=== PATIENT | female | born 1980 | race Two or more races ===

== ENCOUNTER 2018-02-16 12:06 | Emergency (ER) | payer MEDICAID ==
--- NOTE | 2018-02-16 12:42 | ED Physician Chart ---
ED Chief Complaint/HPI - Patient Information Date Seen:: 02/16/18 Time Seen:: 12:00 Chief Complaint:: Headaches History of Present Illness:: onset x 3 days of intermittent, dull, diffuse Headaches radiating to the neck; pt denies trauma, LOC, ALOC, AMS, N/V, decreased activity, visual or gait changes, neck pain, weakness, dizziness, paresthesias, vertigo, cough, C/P, SOB , Abd. Pain, A/N/V/D/c, fever, chills, or urinary s/s; LNMP: 02/13/18; pt denies ; pt is eating and is urinating well; pt last urinated one hour [employer]AM[employer]ER Allergies:: Allergies Allergy/AdvReac Type Severity Reaction Status Date / Time Penicillins [PCN] Allergy Verified 02/16/18 12:12 Vitals:: Vital Signs - 8 hr 02/16/18 12:12 Temp 97.7 F HR 82 RR 16 BP 158/80 O2 Sat % 97 Historian:: Patient, Family Member Review:: Nurse's Note Reviewed ED Review of Systems - Review of Systems General/Constitutional: No fever, No chills, No weight loss, No weakness, No diaphoresis, No edema, No loss of appetite Skin: No skin lesions, No rash, No bruising Head: No headache, No light-headedness Eyes: No loss of vision, No pain, No diplopia ENT: No earache, No nasal drainage, No sore throat, No tinnitus Neck: No neck pain, No swelling, No thyromegaly, No stiffness, No mass noted Cardio Vascular: No chest pain, No palpitations, No PND, No orthopnea, No edema Pulmonary: No SOB, No cough, No sputum, No wheezing GI: No nausea, No vomiting, No diarrhea, No pain, No melena, No hematochezia, No constipation, No hematemesis G/U: No dysuria, No frequency, No hematuria, No nacturia Circle Edger: No vaginal discharge, No abnormal vaginal bleed, No contraction Musculoskeletal: No bone or joint pain, No back pain, No muscle pain Endocrine: No polyuria, No polydipsia Psychiatric: No prior psych history, No depression, No anxiety, No suicidal ideation, No homicidal ideation, No auditory hallucination, No visual hallucination Hematopoietic: No bruising, No lymphadenopathy Allergic/Immuno: No urticaria, No angioedema Neurological: No syncope, No focal symptoms, No weakness, No paresthesia, Headache, No seizure, No dizziness, No confusion, No vertigo ED Past Medical History - Past Medical History Obtainable: Yes Past Medical History: No significant medical hx Family History: None Social History: Non Smoker, No Alcohol, No Drug Use, Surgical History: None Psychiatricy History: None Medication: Reviewed Family Medical History - Family Member Mother History Unknown: Yes Ethnicity: Hx Family Hypertension: Yes ED Physical Exam - Physical Examination General/Constitutional: Awake, Well-developed, well-nourished, Alert, No distress, GCS 15, Non-toxic appearing, Ambulatory Head: Atraumatic Eyes: Lids, conjuctiva normal, PERRL, EOMI Other Eyes comments:: PERRLA; Fundi: benign; EOMs: WNL; LLL: WNL Skin: Nl inspection, No rash, No skin lesions, No ecchymosis, Well hydrated, No lymphadenopathy ENMT: External ears, nose nl, TM canals nl, Nasal exam nl, Lips, teeth, gums nl , Oropharynx nl, Tonsils nl Other ENMT comments:: TMJs: WNL; Neck: Nontender, Full ROM w/o pain, No JVD, No nuchal rigidity, No bruit, No mass, No stridor Other Neck comments:: supple; no meningeal signs; no cervical tenderness; no bruits Respiratory: Nl effort/Exclusion, Clear to Auscultation, No Wheeze/Rhonchi/Rales Cardio Vascular: RRR, No murmur, gallop, rubs, NL S1 S2, Carotid/Femoral/Distal pulses equal bilaterally GI: No tenderness/rebounding/guarding, No organomegaly, No hernia, Normal BS's, Nondistended, No mass/bruits, No McBurney tenderness, Rectum exam nl Other GI comments:: no pulsatile masses; good BS : No CVA tenderness Extremities: No tenderness or effusion, Full ROM, normal strength in all extremities, No edema, Normal digits & nails Neuro/Psych: Alert/oriented, DTR's symmetric, Normal sensory exam, Normal motor strength, Judgement/insight normal, Mood normal, Normal gait, No focal deficits Other Neuro/Psych comments:: no focal signs Misc: Normal back, No paraspinal tenderness ED Labs/Radiology/EKG Results - Lab Results Results: Laboratory Tests 02/16/18 12:20 Urine Test NEGATIVE Comments:: UCG: Negative - Radiology Results Comments:: NAD ED Septic Shock - . Is Septic Shock (SBP<90, OR Lactate>4 mmol\L) present?: No - <6hrs of presentation: Vital Signs: Vital Signs - 8 hr 02/16/18 12:12 Temp 97.7 F HR 82 RR 16 BP 158/80 O2 Sat % 97 ED Reassessment (Disposition) - Reassessment Reassessment:: pt tolerated po fluids well in ER; pt is asymptomatic upon discharge Reassessment Condition:: Improved - Diagnosis Diagnosis:: Headaches; Vascular Cephalgia; Tension Headaches - Aftercare/Follow up Instructions Aftercare/Follow-Up Instructions:: Counseled pt regarding lab results/diagnosis & need follow up, Refer to Discharge Instructions, Counseled pt & family regarding lab results/diagnosis & need follow up - Patient Disposition Discharge/Transfer:: Home Condition at Disposition:: Stable, Improved (RTER prn if existing s/s reoccur and/or get worse and/or any other new s/s occur; X-Rays Instructions; ACIs given for all above Dx; Refer to Neurologist/Carburetor Repairer [facility]; F/U with PMD in one day or prn; RTER prn if concerned) ED Discharge Plan - Patient Disposition Admit/Discharge/Transfer: PT DISCHARGED HOME Condition at Disposition: Stable Instructions: Tension Headache, [id number] Additional Instructions: PLS FOLLOW UP WITH NEUROLOGIST IN 1-2 DAYS. RETURN TO ER IF SYMPTOMS WORSEN.
--- NOTE | 2018-02-16 14:03 | Diagnostic Imaging Report ---
CT scan of the brain without contrast History: Headache Total DLP equals 605 CTDI equals 35.5 Axial sections were obtained from the base of the skull to the vertex. There is a normal ventricular system size. No focal parenchymal lesions are seen. No evidence of any mass effect or shift of midline structures. No extra-axial masses or abnormal fluid collections. Impression: Negative examination
--- NOTE | 2018-02-16 14:04 | Diagnostic Imaging Report ---
CT scan cervical spine History: Pain Total DLP equals 459 CTDI equals 28.2 Axial sections were obtained through the cervical spine region. Additional sagittal and coronal reformatted images are provided. No focal bony lesions are seen. Specifically, no fractures are identified. There is limited visualization of the margins of the cervical spinal cord. No obvious extradural soft tissue abnormalities are seen. The prevertebral soft tissues appear normal. Impression: No acute abnormalities
== END 2018-02-16 15:05 | disposition home or self-care (01) ==
LOC: ER 12:06
DX: G44.1 Vascular headache, not elsewhere classified (principal); G44.209 Tension-type headache, unspecified, not intractable; Z88.0 Allergy status to penicillin
CPT/HCPCS: 70450-TC; 72125-TC; 81025-TC

== ENCOUNTER 2019-04-22 10:31 | Emergency (ER) | payer MEDICAID ==
[2019-04-22 10:59] LABS: % EOSINOPHILS 1.1 % (0.0-5.0); % LYMPHOCYTES 25.9 % (20.0-50.0); % MONOCYTES 3.4 % (2.0-10.0); % NEUTROPHILS 69.6 % (40.0-80.0); EOSINOPHILE ABSOLUTE 0.1 Th/cmm (0.1-0.4); HEMATOCRIT 39.8 % (41.0-60); HEMOGLOBIN 13.4 gm/dL (12-16); LYMPHOCYTE ABSOLUTE 2.3 Th/cmm (1.5-3.0); MEAN CELL VOLUME 84.3 fl (81-100); MEAN CORPUSCULAR HEMOGLOBIN 28.5 pg (27.0-31.0); MEAN CORPUSCULAR HGB CONC 33.8 pg (28.0-36.0); MONOCYTE ABSOLUTE 0.3 Th/cmm (0.3-1.0); PLATELET COUNT 303 Th/cmm (150-400); RED BLOOD COUNT 4.72 Mil/cmm (3.80-5.10); RED CELL DISTRIBUTION WIDTH 12.2 % (11.5-20.0); WHITE BLOOD COUNT 8.7 Th/cmm (4.8-10.8)
[2019-04-22 11:11] LABS: INR 0.95 (0.5-1.4)
--- NOTE | 2019-04-22 11:11 | ED Physician Chart ---
ED Chief Complaint/HPI - Patient Information Date Seen:: 04/22/19 Time Seen:: 10:38 Chief Complaint:: heart palpations History of Present Illness:: this is a 38 yo female with heart palpations that started yesterday at home and has continued today without pain, nausea, vomiting and fever. she denies any previous heart problems, diabetes, thyroid and hypertension problems in the past. she denies dizziness, weakness and abdominal pain. Allergies:: Allergies Allergy/AdvReac Type Severity Reaction Status Date / Time Penicillins [PCN] Allergy Verified 02/16/18 12:12 Vitals:: Vital Signs - 8 hr 04/22/19 10:40 Temp 97.6 F HR 74 RR 16 BP 140/69 O2 Sat % 99 Historian:: Patient Review:: Nurse's Note Reviewed, Old Chart Reviewed ED Review of Systems - Review of Systems General/Constitutional: No fever, No chills, No weight loss, No weakness, No diaphoresis, No edema, No loss of appetite Skin: No skin lesions, No rash, No bruising Head: No headache, No light-headedness Eyes: No loss of vision, No pain, No diplopia ENT: No earache, No nasal drainage, No sore throat, No tinnitus Neck: No neck pain, No swelling, No thyromegaly, No stiffness, No mass noted Cardio Vascular: No chest pain, Palpitations, No PND, No orthopnea, No edema Pulmonary: No SOB, No cough, No sputum, No wheezing GI: No nausea, No vomiting, No diarrhea, No pain, No melena, No hematochezia, No constipation, No hematemesis G/U: No dysuria, No frequency, No hematuria Musculoskeletal: No bone or joint pain, No back pain, No muscle pain Endocrine: No polyuria, No polydipsia Psychiatric: No prior psych history, No depression, No anxiety, No suicidal ideation Hematopoietic: No bruising, No lymphadenopathy Allergic/Immuno: No urticaria, No angioedema Neurological: No syncope, No focal symptoms, No weakness, No paresthesia, No headache, No seizure, No dizziness, No confusion, No vertigo ED Past Medical History - Past Medical History Obtainable: Yes Past Medical History: No significant medical hx Family History: None Social History: Non Smoker, No Alcohol, No Drug Use, Surgical History: (two c-sections) Psychiatricy History: None Medication: Reviewed Family Medical History - Family Member Mother History Unknown: Yes Ethnicity: Hx Family Hypertension: Yes ED Physical Exam - Physical Examination General/Constitutional: Awake, Well-developed, well-nourished, Alert, No distress, GCS 15, Non-toxic appearing, Ambulatory Head: Atraumatic Eyes: Lids, conjuctiva normal, PERRL, EOMI Skin: Nl inspection, No rash, No skin lesions, No ecchymosis, Well hydrated, No lymphadenopathy ENMT: External ears, nose nl, Nasal exam nl, Lips, teeth, gums nl Neck: Nontender, Full ROM w/o pain, No JVD, No nuchal rigidity, No bruit, No mass, No stridor Respiratory: Nl effort/Exclusion, Clear to Auscultation, No Wheeze/Rhonchi/Rales Cardio Vascular: RRR, No murmur, gallop, rubs, NL S1 S2 GI: No tenderness/rebounding/guarding, No organomegaly, No hernia, Normal BS's, Nondistended, No mass/bruits, No McBurney tenderness : No CVA tenderness Extremities: No tenderness or effusion, Full ROM, normal strength in all extremities, No edema, Normal digits & nails Neuro/Psych: Alert/oriented, DTR's symmetric, Normal sensory exam, Normal motor strength, Judgement/insight normal, Mood normal, Normal gait, No focal deficits Misc: Normal back, No paraspinal tenderness ED Labs/Radiology/EKG Results - Lab Results Results: Laboratory Tests 04/22/19 10:45 WBC 8.7 RBC 4.72 Hgb 13.4 Hct 39.8 L MCV 84.3 MCH 28.5 MCHC Differential 33.8 RDW 12.2 Plt Count 303 MPV 7.3 Neutrophils % 69.6 Lymphocytes % 25.9 Monocytes % 3.4 Eosinophils % 1.1 Basophils % 0.0 Abnormal Lab Results 04/22/19 04/22/19 04/22/19 10:45 10:45 10:45 WBC 8.7 RBC 4.72 Hgb 13.4 Hct 39.8 L MCV 84.3 MCH 28.5 MCHC Differential 33.8 RDW 12.2 Plt Count 303 MPV 7.3 Neutrophils % 69.6 Lymphocytes % 25.9 Monocytes % 3.4 Eosinophils % 1.1 Basophils % 0.0 PT 9.9 INR 0.95 PTT (Actin FS) 27.8 Sodium 136 Potassium 3.7 Chloride 105 Carbon Dioxide 22.9 Anion Gap 11.8 BUN 8 Creatinine 0.6 Est GFR ( Amer) > 60.0 Est GFR (Non-Af Amer) > 60.0 BUN/Creatinine Ratio 13.3 Glucose 101 Calcium 9.0 Total Bilirubin 0.3 AST 15 ALT 13 Alkaline Phosphatase 113 H Troponin I Total Protein 7.7 Albumin 4.2 Globulin 3.5 Albumin/Globulin Ratio 1.2 Triglycerides 115 Cholesterol 172 LDL Cholesterol Direct 115 HDL Cholesterol 53 Urine Source Urine Color Urine Clarity Urine pH Ur Specific [place] Urine Protein Urine Glucose (UA) Urine Ketones Urine Blood Urine Nitrate Urine Bilirubin Urine Urobilinogen Ur Leukocyte Esterase Urine RBC Urine WBC Ur Epithelial Cells Urine Bacteria Urine Mucus 04/22/19 04/22/19 10:45 11:20 WBC RBC Hgb Hct MCV MCH MCHC Differential RDW Plt Count MPV Neutrophils % Lymphocytes % Monocytes % Eosinophils % Basophils % PT INR PTT (Actin FS) Sodium Potassium Chloride Carbon Dioxide Anion Gap BUN Creatinine Est GFR ( Amer) Est GFR (Non-Af Amer) BUN/Creatinine Ratio Glucose Calcium Total Bilirubin AST ALT Alkaline Phosphatase Troponin I 0.01 Total Protein Albumin Globulin Albumin/Globulin Ratio Triglycerides Cholesterol LDL Cholesterol Direct HDL Cholesterol Urine Source CLEAN C Urine Color YELLOW Urine Clarity CLEAR Urine pH 6.0 Ur Specific [place] >= 1.030 Urine Protein NEGATIVE Urine Glucose (UA) NEGATIVE Urine Ketones NEGATIVE Urine Blood SMALL H Urine Nitrate NEGATIVE Urine Bilirubin NEGATIVE Urine Urobilinogen 0.2 Ur Leukocyte Esterase NEGATIVE Urine RBC 0-2 Urine WBC 0-2 Ur Epithelial Cells MODERATE Urine Bacteria 2+ H Urine Mucus FEW - Radiology Results Results: chest x-ray = nad - EKG Interpretations EKG Time:: 10:33 Rate & Rhythm: rate =72 Umbarger: right axis ED Assessment - Assessment General Assessment: palpitations ED Septic Shock - . Is Septic Shock (SBP<90, OR Lactate>4 mmol\L) present?: No - <6hrs of presentation: Vital Signs: Vital Signs - 8 hr 04/22/19 10:40 Temp 97.6 F HR 74 RR 16 BP 140/69 O2 Sat % 99 ED Reassessment (Disposition) - Reassessment Reassessment Condition:: Improved - Diagnosis Diagnosis:: urinary tract infection hematuria palpitations - Aftercare/Follow up Instructions Aftercare/Follow-Up Instructions:: Counseled pt regarding lab results/diagnosis & need follow up, Refer to Discharge Instructions, Counseled pt & family regarding lab results/diagnosis & need follow up Medication Prescribed:: [id number] - Patient Disposition Discharge/Transfer:: Home Condition at Disposition:: Improved
[2019-04-22 11:17] LABS: ALB/GLOB RATIO 1.2 (1.0-1.8); ALBUMIN 4.2 gm/dL (3.7-5.3); ALKALINE PHOSPHATASE 113 U/L (34-104); ANION GAP 11.8 (7.0-16.0); BILIRUBIN,TOTAL 0.3 mg/dL (0.3-1.0); BUN - UREA NITROGEN 8 mg/dL (7-25); CARBON DIOXIDE 22.9 mEq/L (21.0-31.0); CHLORIDE 105 mEq/L (98-107); CHOLESTEROL 172 mg/dL (<200); CREATININE - SERUM 0.6 mg/dL (0.6-1.2); GFR AFRICAN-AMERICAN > 60.0 ml/min (>90); GFR NON AFRICAN-AMERICAN > 60.0 ml/min; GLUCOSE 101 mg/dL (70-105); HDL -HIGH DENSITY LIPOPROTEIN 53 mg/dL (23-92); POTASSIUM SERUM 3.7 mEq/L (3.5-5.1); SGOT 15 U/L (13-39); SGPT/ALT 13 U/L (7-52); SODIUM SERUM 136 mEq/L (136-145); TOTAL PROTEIN,SERUM 7.7 gm/dL (6.0-8.3); TRIGLYCERIDES 115 mg/dL (<150)
[2019-04-22 11:31] LABS: URINE SOURCE CLEAN C
[2019-04-22 11:34] LABS: URINE BILIRUBIN NEGATIVE (NEGATIVE); URINE BLOOD SMALL (NEGATIVE); URINE GLUCOSE (UA) NEGATIVE (NEGATIVE); URINE KETONE NEGATIVE (NEGATIVE); URINE LEUKOCYTE ESTERASE NEGATIVE (NEGATIVE); URINE MICROSCOPIC INDICATED? YES; URINE NITRATE NEGATIVE (NEGATIVE); URINE PROTEIN NEGATIVE (NEGATIVE); URINE UROBILINOGEN 0.2 E.U./dL (0.2 - 1.0)
[2019-04-22 11:35] LABS: URINE COLOR YELLOW
[2019-04-22 11:37] LABS: URINE CLARITY CLEAR (CLEAR)
[2019-04-22 11:43] LABS: URINE BACTERIA 2+ /hpf (NONE SEEN); URINE EPITHELIAL CELLS MODERATE /lpf (FEW); URINE RBC 0-2 /hpf (0-5); URINE WBC 0-2 /hpf (0-5)
--- NOTE | 2019-04-23 09:11 | Diagnostic Imaging Report ---
Portable chest x-ray History: Pain Allowing for portable technique the heart size is normal. No focal pulmonary parenchymal processes. No hilar or mediastinal abnormalities. Impression: No acute abnormalities.
== END 2019-04-22 12:17 | disposition home or self-care (01) ==
LOC: ER 10:31
DX: N39.0 Urinary tract infection, site not specified (principal); R31.9 Hematuria, unspecified; R00.2 Palpitations; Z88.0 Allergy status to penicillin
CPT/HCPCS: 99284; 96372; 93005; 71045; 84484; 36415; 84443; 85025; 85610; 85730; 87086; 81001; 80053; 80061; 87040 ×2; J0696